=== PATIENT | male | born 1990 | race Caucasian/White ===

== ENCOUNTER 2017-11-16 08:35 | Emergency (ER) | payer SELFPAY ==
[2017-11-16] MEDS ORDERED: Sodium Chloride 0.9% 1,000 ML IV SCH (09:00)
--- NOTE | 2017-11-16 09:00 | EDM.PDOC ---
ED HPI GENERAL MEDICAL PROBLEM - General Chief Complaint: Allergic Reaction Stated Complaint: ALLERGIC RX Time Seen by Provider: 11/16/17 08:58 Source of Information: Reports: Patient History Limitations: Reports: No Limitations - History of Present Illness INITIAL COMMENTS - FREE TEXT/NARRATIVE: 27-year-old male presents to the ED with severe allergic reaction involving mostly his face and neck lips and in posterior anterior neck. It also involves small spaces between his gloved fingers and his forearms i.e. the wrists. 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 He usually dresses any complete has met suit including oxygen take an respirator. I suspect is using isocyanate metal clad paint. There obviously was a defect in the has met suit that he used yesterday. Patient states after his shower when he got home last night he started itching and then the rash developed severely overnight. He is complaining of itching burning biting type pain. His face is extremely swollen to the point that both upper and lower eyelids are making slits of his eyes. He has no respiratory embarrassment. Denies cough. Denies any feeling of throat closure. The rest of his body so far has not developed a rash. It appears there was a leak around the face mask. Of note he has sparing of his entire scalp. He is taking Benadryl at home with no relief. Also taken Rajendra with lidocaine topically with no relief Onset: Sudden Onset Date: 11/15/17 Onset Time: 18:00 (This began after he showered last night after getting home from work.) Duration: Hour(s): Location: Reports: Head (Behind his ears his ears and nape of neck.), Face, Neck , Upper Extremity, Left (Wrists. Wrists.), Upper Extremity, Right. Denies: Chest, Abdomen, Back, Pelvis Quality: Reports: Burning, Other (Pruritus.) Severity: Severe Improves with: Reports: None Worsens with: Reports: None Context: Reports: Other (Exposure to noxious chemicals in the workplace. He states he's been at this job for 2 months. He sprays takes with paint. I suspect these are iso-cyanates. He wears a full hazmat suit but obviously was a defect in weight sealed yesterday and he certainly got exposure to his skin. Resulted in a severe contact dermatitis involving primarily his entire face anterior posterior neck. There is also slight rash developing on his wrists particular in the volar aspects bilaterally.). Denies: Activity, Exercise, Lifting, Sick Contact, Trauma Associated Symptoms: Reports: Rash. Denies: Confusion, Chest Pain, Cough, cough w sputum, Diaphoresis, Fever/Chills, Headaches, Loss of Appetite, Malaise , Nausea/Vomiting, Seizure, Shortness of Breath, Syncope, Weakness Treatments KNOCKER OFF: Reports: Other (see below) (Allopurinol with lidocaine. Oral Benadryl.) Face Pain Score (Numeric/FACES): 10 Posterior Neck Pain Score (Numeric/FACES): 10 - Related Data Allergies Allergy/AdvReac Type Severity Reaction Status Date / Time No Known Allergies Allergy Verified 11/16/17 08:56 Home Meds: Home Meds Betamethasone Valerate 45 gm TP BID #1 cream..g. 11/16/17 [Rx] predniSONE [Deltasone] 20 mg PO BID #14 tablet 11/16/17 [Rx] Social & Family History - Living Situation & Occupation Occupation: Employed ED ROS ALLERGIC REACTION - Review of Systems Review Of Systems: See Below Constitutional: Reports: Fatigue (From not sleeping much last night.). Denies: Fever, Chills, Malaise, Weakness HEENT: Denies: Glasses, Hearing Loss, Nosebleed, Nose Pain, Rhinitis, Sinus Problem, Throat Pain, Throat Swelling, Vertigo, Vision Change, Other Respiratory: Reports: No Symptoms Cardiovascular: Reports: No Symptoms Endocrine: Reports: No Symptoms GI/Abdominal: Reports: No Symptoms : Reports: No Symptoms Musculoskeletal: Reports: No Symptoms Skin: Reports: Rash (Severe erythematous slightly losing crusting rash involving his face anterior posterior neck.) Neurological: Reports: No Symptoms Psychiatric: Reports: No Symptoms ED EXAM GENERAL NO PERIP PULSE - Physical Exam Exam: See Below (See history of present illness) Exam Limited By: No Limitations General Appearance: Alert, Moderate Distress, Other (Faces extremely swollen. His eyes are slits due to marked amount of swelling of his upper and lower eyelids.) Eye Exam: Bilateral Eye: Normal Inspection, Periorbital Changes (Severe swelling of the soft tissues of the upper and lower eyelids rating slit like eyes. Denies any eye burning pain.) Ears: Other (Erythema of the pinna of both ears without any open wounds.) Nose: Other (Erythema of the entire nose.) Throat/Mouth: Normal Inspection, Normal Oropharynx, Other (Lips are swollen both upper and lower.) Head: Atraumatic, Normocephalic, Other (His scalp seems to have been spared the exposure to the skin irritation.) Neck: Other (Anterior posterior neck behind his ears and need of neck down to where his T-shirt would be overall erythematous with some scaling and crusting because of serous drainage from the degree of contact dermatitis.) Respiratory/Chest: No Respiratory Distress, Lungs Clear, Normal Breath Sounds, No Accessory Muscle Use, Chest Non-Tender Cardiovascular: Normal Peripheral Pulses, Regular Rate, Rhythm, No Edema, No Gallop, No Murmur GI/Abdominal: Normal Bowel Sounds, Soft, Non-Tender, No Organomegaly, No Abnormal Bruit, No Mass, Pelvis Stable Back Exam: Normal Inspection, Full Range of Motion. No: CVA Tenderness (L), CVA Tenderness (R) Extremities: Other (He has some mild maculopapular rash over the volar aspect of his wrists. There is no confluence of rash like there is on his face and head neck. He states this also is quite) Neurological: Alert ( itchy.), Oriented, CN II-XII Intact, Normal Cognition Psychiatric: Normal Affect, Normal Mood Skin Exam: Warm, Dry, Intact, Erythema (Patient has a severe atheromatous erythematous rash involving his entire face especially forehead up to the hairline soft tissues of his upper and lower eyelids his facial cheeks both upper and lower lips both ureters are erythematous. On the nape of his neck he has oozing and some serous discharge. The skin is very warm to palpation. This is secondary to his severe contact dermatitis to something that he is using in the workplace.) Course - Vital Signs Last Recorded V/S: Last Vital Signs Temp 36.9 C 11/16/17 08:50 Pulse 74 11/16/17 10:50 Resp 16 11/16/17 10:50 BP 104/65 11/16/17 10:50 Pulse Ox 98 11/16/17 10:50 - Orders/Labs/Meds Orders: Active Orders 24 hr Category Date Time Status Sodium Chloride 0.9% [Normal Saline] 1,000 ml Med 11/16/17 09:00 Active IV ASDIRECTED Medication Orders Sodium Chloride (Normal Saline) 1,000 mls @ 500 mls/hr IV ASDIRECTED ANDREY Last Admin: 11/16/17 09:11 Dose: 500 mls/hr Meds: Medications Generic Name Dose Route Start Last Admin Trade Name Aubrie PRN Reason Stop Dose Admin Sodium Chloride 1,000 mls @ 500 mls/hr 11/16/17 09:00 11/16/17 09:11 Normal Saline IV 500 mls/hr ASDIRECTED ANDREY Administration Discontinued Medications Generic Name Dose Route Start Last Admin Trade Name Aubrie PRN Reason Stop Dose Admin Diphenhydramine HCl 50 mg 11/16/17 09:10 11/16/17 09:14 Benadryl IVPUSH 11/16/17 09:11 50 mg ONETIME ONE Administration Famotidine 20 mg 11/16/17 09:10 11/16/17 09:16 Pepcid IVPUSH 11/16/17 09:11 20 mg ONETIME ONE Administration Methylprednisolone Sodium Succinate 125 mg 11/16/17 09:11 11/16/17 09:20 Solu-Medrol IVPUSH 11/16/17 09:12 125 mg ONETIME ONE Administration - Radiology Interpretation Free Text/Narrative:: 27-year-old male presents to the ED with a work-related injury. Patient presents with a severe contact dermatitis involving his entire face upper and lower eyelids upper and lower lips anterior nape of neck chin posterior neck and behind his ears. He has a severe erythematous rash with skin breakdown and serous drainage. Is growing [place] several areas due to serous drainage of the nape of his neck. His scalp itself seems to been spared contact with the offensive irritating substance. He has no inhalational or respiratory embarrassment. 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 He's been doing this type of work for the last 2 months. Obviously there was some defect or fault in his hazmat suit utilize yesterday. States he noticed the rash starting to develop after showering last night the rash is progressed very dramatically overnight to involve his entire face anterior and posterior neck years and behind his ears. It is spared his scalp per se. He has a little bit of erythema and rash involving the volar aspects of his wrists above where his gloves would fit. Treatment will be Solu-Medrol 125 mg IV with Pepcid 20 mg IV and Benadryl 50 mg IV for acute allergic reaction. Will require discharge with topical steroid as well as oral steroids to bring this under control. He will likely missed the rest of the work week. - Re-Assessments/Exams Free Text/Narrative Re-Assessment/Exam: 11/16/17 11:00: Is starting to feel better with less itch. Actually the swelling of his upper lids appears to be slowly resolving. He has excessive tearing from both eyes. Plan he'll be discharged on Deltasone 20 mg twice daily for the next 7 days. Next dose would be due after supper tonight. He'll also use betamethasone 0.1% cream applied to his rash twice daily until clear which should be about 3 days. Off work for the next 5-7 days until the rash is completely cleared. Obviously if he's going to go back to the same type of work he needs to be able to check his equipment as it was definitely a faulty problem with the safety equipment to expose the skin to this severe irritant that caused it severe contact dermatitis. Follow-up if not completely back to normal in 7 days time Departure - Departure Time of Disposition: 11:06 Disposition: Home, Self-Care 01 Condition: Fair Clinical Impression: Contact dermatitis Qualifiers: Contact dermatitis type: irritant Contact dermatitis trigger: other trigger Qualified Code(s): L24.89 - Irritant contact dermatitis due to other agents - Discharge Information *PRESCRIPTION DRUG MONITORING PROGRAM REVIEWED*: Not Applicable *COPY OF PRESCRIPTION DRUG MONITORING REPORT IN PATIENT VITALY: Not Applicable Prescriptions: Betamethasone Valerate 45 gm TP BID #1 cream..g. predniSONE [Deltasone] 20 mg PO BID #14 tablet Instructions: Contact Dermatitis, [id number] Referrals: PCP,None [Primary Care Provider] - Forms: ED Department Discharge, ED Return to Work/School Form Additional Instructions: Evaluation in the emergency room today in regards to your contact dermatitis that is occurs from exposure to chemicals in the workplace yesterday. Obviously there was a fault or defect in the safety equipment with the spring material able to enter your equipment and start to irritate the skin of your face neck and nape of the neck. This resulted in a severe irritant contact dermatitis. This often can be due to solvents and it can be due to isocyanates which are found in paints--especially pains that are used to paint cars for example. Treated in the ED with initial doses of Benadryl 50 mg IV Pepcid 20 mg IV and Solu-Medrol steroid 125 mg IV. Treatment at home is to use betamethasone cream to all affected areas twice daily for the next 3 days. He uses very sparingly on her face but may use it on neck and chin area if needed particular the nape of the neck will be a little bit longer to settle down. Secondly you need oral steroid Deltasone 20 mg twice daily with the first tablet to be taken after supper tonight. This should be taken twice daily for 6 full 7 days. You are off work until the rash has cleared completely which is likely going to be 5-7 days. Obviously checking into the safety equipment is very important to try and prevent this from happening in the future. Follow-up if not completely back to normal in 7 days time - My Orders Last 24 Hours: My Active Orders 11/16/17 09:00 Sodium Chloride 0.9% [Normal Saline] 1,000 ml IV ASDIRECTED - Assessment/Plan Last 24 Hours: My Active Orders 11/16/17 09:00 Sodium Chloride 0.9% [Normal Saline] 1,000 ml IV ASDIRECTED
[2017-11-16] MEDS ORDERED: Famotidine 20 MG/2 ML SDV IVPUSH ONE (09:10)
[2017-11-16] MEDS ORDERED: diphenhydrAMINE 50 MG/ML SDV IVPUSH ONE (09:10)
[2017-11-16] MEDS ORDERED: methylPREDNISolone Sodium Succinate 125 MG/2 ML SDV IVPUSH ONE (09:11)
== END 2017-11-16 11:30 | disposition home or self-care (01) ==
LOC: JD.ED 08:35
DX: L24.89 Irritant contact dermatitis due to other agents (principal)
CPT/HCPCS: 96361; 96374; 96375; 99283; J1200; J2930; J3490; J7040; 99284